=== PATIENT | female | born 1980 | race African-American/Black ===

== ENCOUNTER 2017-12-19 15:06 | Emergency (ER) | payer OTHER ==
[~2017-12-19] VITALS: Ht 154.9 cm; Wt 81.7 kg
[~2017-12-19 15:06] MED LIST: BACTRIM DS TAB1 EACH PO; IBUPROFEN 600600 M1 PO; IBUPROFEN 800800 MG PO; NOHOMEMEDICATIONS; NORCO 5-325 TA1 EACH PO; PENICILLIN VK500 MG PO; RONDEC-DM SYRU120 ML PO
[2017-12-19 15:07] VITALS: BP 149/104
[2017-12-19] MEDS ORDERED: PENICILLIN V P500 MG PO (15:13)
[2017-12-19] MEDS ORDERED: NORCO 10-325 T1 EACH PO (15:13)
[2017-12-19] MEDS ORDERED: IBUPROFEN 800800 M1 PO (15:39)
== END 2017-12-19 15:46 | disposition home or self-care (01) ==
LOC: ER 15:06
DX: K08.89 Other specified disorders of teeth and supporting structures (principal); Z88.5 Allergy status to narcotic agent; Z88.6 Allergy status to analgesic agent

== ENCOUNTER 2017-12-23 05:44 | Emergency (ER) | payer OTHER ==
[~2017-12-23] VITALS: Ht 154.9 cm; Wt 81.7 kg
[~2017-12-23 05:44] MED LIST changes: +IBUPROFEN 800800 M1 PO; +NORCO 10-325 T1 EACH PO; +PENICILLIN V P500 MG PO
[2017-12-23 06:20] LABS: ABSOLUTE NEUTROPHILS 4.1 thou/uL (1.4-8.2); BASOPHILS 0.5 % (0.0-2.0); EOSINOPHILS 1.4 % (0.0-3.0); HEMATOCRIT 39.4 % (37.0-47.0); HEMOGLOBIN 13.2 gm/dL (12.0-15.0); LYMPHOCYTES 29.2 % (24.0-44.0); MCH 30.4 pg (26.0-34.0); MCHC 33.4 g/dL (28.0-37.0); MONOCYTES 7.4 % (1.0-8.0); PLATELET COUNT 299 thou/uL (150-400); POLYS 61.5 % (36.0-66.0); RBC 4.33 mil/uL (4.20-5.00); WBC 6.7 thou/uL (4.0-11.0)
[2017-12-23 06:22] LABS: CALCIUM 8.8 mg/dL (8.5-10.1); CREATININE 0.8 mg/dL (0.6-1.0); POTASSIUM 3.5 mmol/L (3.5-5.1)
[2017-12-23 06:27] LABS: ALBUMIN 3.7 g/dL (3.4-5.0); TOTAL BILIRUBIN 0.4 mg/dL (<0.1-1.0); TOTAL PROTEIN 7.1 g/dL (6.4-8.2)
[2017-12-23 06:58] LABS: URINE BILIRUBIN NEGATIVE (Negative); URINE BLOOD TRACE (Negative); URINE CLARITY CLEAR; URINE COLOR YELLOW; URINE GLUCOSE-RANDOM* NEGATIVE (Negative); URINE KETONES 1+ (Negative); URINE LEUKOCYTES-REFLEX NEGATIVE (Negative); URINE NITRITE-REFLEX NEGATIVE (Negative); URINE PROTEIN (DIPSTICK) TRACE (Negative); URINE UROBILINOGEN 0.2 E.U./dl (0.2-1.0)
[2017-12-23] MEDS ORDERED: IBUPROFEN 600600 M1 PO (08:49)
[2017-12-23 09:28] VITALS: BP 130/65
== END 2017-12-23 09:29 | disposition home or self-care (01) ==
LOC: ER 05:44
PROVIDERS: Emergency Medicine
DX: R10.31 Right lower quadrant pain (principal); Z90.710 Acquired absence of both cervix and uterus; Z88.6 Allergy status to analgesic agent; Z88.8 Allergy status to other drugs, medicaments and biological substances

== ENCOUNTER 2019-02-23 02:21 | Emergency (ER) | payer OTHER ==
[~2019-02-23] VITALS: Ht 154.9 cm; Wt 63.5 kg
[2019-02-23] MEDS ORDERED: MULTIVITAMINS1 EAC7 PO (02:46)
[2019-02-23 03:15] LABS: URINE BILIRUBIN NEGATIVE (Negative); URINE BLOOD NEGATIVE (Negative); URINE CLARITY CLEAR; URINE COLOR YELLOW; URINE GLUCOSE-RANDOM* NEGATIVE (Negative); URINE KETONES NEGATIVE (Negative); URINE LEUKOCYTES-REFLEX NEGATIVE (Negative); URINE NITRITE-REFLEX NEGATIVE (Negative); URINE PROTEIN (DIPSTICK) NEGATIVE (Negative); URINE UROBILINOGEN 0.2 E.U./dl (0.2-1.0)
[2019-02-23 03:43] LABS: ABSOLUTE NEUTROPHILS 6.3 thou/uL (1.4-8.2); BASOPHILS 0.5 % (0.0-2.0); HEMATOCRIT 38.8 % (37.0-47.0); HEMOGLOBIN 13.2 gm/dL (12.0-15.0); LYMPHOCYTES 14.7 % (24.0-44.0); MCV 88.2 fL (80.0-100.0); MONOCYTES 4.3 % (1.0-8.0); PLATELET COUNT 284 thou/uL (150-400); POLYS 79.5 % (36.0-66.0); RDW 12.5 % (10.5-14.5)
[2019-02-23 03:51] LABS: CALCIUM 9.4 mg/dL (8.5-10.1); CREATININE 0.7 mg/dL (0.6-1.0); POTASSIUM 4.3 mmol/L (3.5-5.1)
[2019-02-23 03:57] VITALS: BP 143/81
[2019-02-23 03:57] LABS: TOTAL BILIRUBIN 0.3 mg/dL (<0.1-1.0); TOTAL PROTEIN 7.9 g/dL (6.4-8.2)
== END 2019-02-23 03:46 | disposition left against medical advice (07) ==
LOC: ER 02:21
PROVIDERS: Emergency Medicine
DX: R10.31 Right lower quadrant pain (principal); Z76.5 Malingerer [conscious simulation]; Z90.710 Acquired absence of both cervix and uterus; Z88.6 Allergy status to analgesic agent; Z88.5 Allergy status to narcotic agent; Z88.8 Allergy status to other drugs, medicaments and biological substances

== ENCOUNTER 2019-06-17 22:03 | Emergency (ER) | payer OTHER ==
[~2019-06-17] VITALS: Ht 154.9 cm; Wt 81.7 kg
[~2019-06-17 22:03] MED LIST changes: +MULTIVITAMINS1 EAC7 PO
[2019-06-17] MEDS ORDERED: ACETAMINOPHEN-1 EAC1 PO (22:47)
[2019-06-17] MEDS ORDERED: NAPROSYN500 MG PO (22:47)
[2019-06-17 23:20] VITALS: BP 158/88
== END 2019-06-17 23:21 | disposition home or self-care (01) ==
LOC: ER 22:03
DX: S83.91XA Sprain of unspecified site of right knee, initial encounter (principal); Z90.710 Acquired absence of both cervix and uterus; Z90.721 Acquired absence of ovaries, unilateral; Z88.6 Allergy status to analgesic agent; Z88.8 Allergy status to other drugs, medicaments and biological substances; X50.1XXA Overexertion from prolonged static or awkward postures, initial encounter; Y93.89 Activity, other specified; Y92.098 Other place in other non-institutional residence as the place of occurrence of the external cause; Y99.8 Other external cause status

== ENCOUNTER 2020-03-01 17:34 | Emergency (ER) | payer OTHER, BC ==
[~2020-03-01] VITALS: Ht 154.9 cm; Wt 80.7 kg
[~2020-03-01 17:34] MED LIST changes: +ACETAMINOPHEN-1 EAC1 PO; +NAPROSYN500 MG PO
[2020-03-01] MEDS ORDERED: IBUPROFEN 800800 M1 PO (19:25)
[2020-03-01] MEDS ORDERED: ROBAXIN 750 MG750 MG PO (19:25)
[2020-03-01] MEDS ORDERED: CVS POLY BACITR28 G1 TOP (19:25)
[2020-03-01] MEDS ORDERED: KEFLEX500 M2 PO (19:25)
[2020-03-01] MEDS ORDERED: COLACE100 MG PO (19:29)
[2020-03-01] MEDS ORDERED: NORCO 5-325 TA1 EAC1 PO (19:31)
[2020-03-01 19:41] VITALS: BP 137/79
== END 2020-03-01 19:40 | disposition home or self-care (01) ==
LOC: ER 17:34
DX: S66.911A Strain of unspecified muscle, fascia and tendon at wrist and hand level, right hand, initial encounter (principal); S46.912A Strain of unspecified muscle, fascia and tendon at shoulder and upper arm level, left arm, initial encounter; S80.02XA Contusion of left knee, initial encounter; S90.112A Contusion of left great toe without damage to nail, initial encounter; S00.81XA Abrasion of other part of head, initial encounter; Z79.899 Other long term (current) drug therapy; Z90.710 Acquired absence of both cervix and uterus; Z98.890 Other specified postprocedural states; Z88.6 Allergy status to analgesic agent; V19.88XA Pedal cyclist (driver) (passenger) injured in other specified transport accidents, initial encounter; Y93.55 Activity, bike riding; Y92.413 State road as the place of occurrence of the external cause; Y99.9 Unspecified external cause status

== ENCOUNTER 2020-04-27 20:52 | Emergency (ER) | payer OTHER ==
[~2020-04-27] VITALS: Ht 162.6 cm; Wt 68.0 kg
[~2020-04-27 20:52] MED LIST changes: +COLACE100 MG PO; +CVS POLY BACITR28 G1 TOP; +KEFLEX500 M2 PO; +NORCO 5-325 TA1 EAC1 PO; +ROBAXIN 750 MG750 MG PO
[2020-04-27 20:56] VITALS: BP 136/92
[2020-04-27 21:18] LABS: URINE BILIRUBIN NEGATIVE (Negative); URINE BLOOD 1+ (Negative); URINE CLARITY CLEAR; URINE COLOR YELLOW; URINE GLUCOSE-RANDOM* NEGATIVE (Negative); URINE KETONES NEGATIVE (Negative); URINE NITRITE-REFLEX NEGATIVE (Negative); URINE PROTEIN (DIPSTICK) 1+ (Negative); URINE SPECIFIC GRAVITY >= 1.030 (1.005-1.035)
[2020-04-27 21:20] LABS: URINE LEUKOCYTES-REFLEX 2+ (Negative)
[2020-04-27 21:31] LABS: CASTS None Seen /LPF (None Seen); CRYSTALS None Seen /LPF (None Seen); SQUAMOUS 4-10 Moderate /LPF (0-3)
[2020-04-27 21:32] LABS: BACTERIA-REFLEX 1-9 Few /HPF (None Seen); URINE RBC 0-2 Rare /HPF (0-2)
[2020-04-27] MEDS ORDERED: FLAGYL500 M1 PO (21:38)
== END 2020-04-27 21:40 | disposition home or self-care (01) ==
LOC: ER 20:52
PROVIDERS: Physician Assistant
DX: A59.9 Trichomoniasis, unspecified (principal); Z90.711 Acquired absence of uterus with remaining cervical stump; Z79.899 Other long term (current) drug therapy; Z79.2 Long term (current) use of antibiotics; Z88.8 Allergy status to other drugs, medicaments and biological substances; Z88.6 Allergy status to analgesic agent; Z88.5 Allergy status to narcotic agent

== ENCOUNTER 2020-05-05 01:23 | Emergency (ER) | payer OTHER ==
[~2020-05-05] VITALS: Ht 154.9 cm; Wt 81.7 kg
[~2020-05-05 01:23] MED LIST changes: +FLAGYL500 M1 PO
[2020-05-05] MEDS ORDERED: NORCO 5-325 TA1 EAC2 PO (03:47)
[2020-05-05 03:58] VITALS: BP 145/84
== END 2020-05-05 03:59 | disposition home or self-care (01) ==
LOC: ER 01:23
DX: S63.502A Unspecified sprain of left wrist, initial encounter (principal); Z90.711 Acquired absence of uterus with remaining cervical stump; Z98.890 Other specified postprocedural states; Z88.8 Allergy status to other drugs, medicaments and biological substances; Z88.6 Allergy status to analgesic agent; Z88.5 Allergy status to narcotic agent; V87.8XXA Person injured in other specified noncollision transport accidents involving motor vehicle (traffic), initial encounter; Y93.89 Activity, other specified; Y92.488 Other paved roadways as the place of occurrence of the external cause; Y99.8 Other external cause status

== ENCOUNTER 2020-05-22 23:21 | Emergency (ER) | payer OTHER ==
[~2020-05-22] VITALS: Ht 154.9 cm; Wt 80.7 kg
[~2020-05-22 23:21] MED LIST changes: +NORCO 5-325 TA1 EAC2 PO
[2020-05-23 00:25] LABS: ABSOLUTE NEUTROPHILS 2.3 thou/uL (1.4-8.2); BASOPHILS 0.6 % (0.0-2.0); EOSINOPHILS 2.7 % (0.0-3.0); HEMATOCRIT 35.9 % (37.0-47.0); LYMPHOCYTES 40.2 % (24.0-44.0); MCH 30.4 pg (26.0-34.0); MCHC 33.5 g/dL (28.0-37.0); MCV 90.6 fL (80.0-100.0); MONOCYTES 6.7 % (1.0-8.0); PLATELET COUNT 270 thou/uL (150-400); POLYS 49.8 % (36.0-66.0); RBC 3.96 mil/uL (4.20-5.00); RDW 13.6 % (10.5-14.5); WBC 4.7 thou/uL (4.0-11.0)
[2020-05-23 00:33] LABS: CALCIUM 8.3 mg/dL (8.5-10.1); CREATININE 1.1 mg/dL (0.6-1.0); POTASSIUM 3.7 mmol/L (3.5-5.1)
[2020-05-23] MEDS ORDERED: NORCO 5-325 TA1 EAC2 PO (01:58)
[2020-05-23] MEDS ORDERED: AMOXICILLIN 50500 M1 PO (01:58)
[2020-05-23] MEDS ORDERED: SENNA-DOCUSATE1 EAC1 PO (01:58)
[2020-05-23 02:07] VITALS: BP 162/101
== END 2020-05-23 02:09 | disposition home or self-care (01) ==
LOC: ER 23:21
PROVIDERS: Emergency Medicine
DX: K04.7 Periapical abscess without sinus (principal); Z88.6 Allergy status to analgesic agent; Z88.5 Allergy status to narcotic agent; Z90.710 Acquired absence of both cervix and uterus; Z98.890 Other specified postprocedural states

== ENCOUNTER 2020-09-09 21:11 | Emergency (ER) | payer OTHER ==
[~2020-09-09] VITALS: Ht 154.9 cm; Wt 81.7 kg
[~2020-09-09 21:11] MED LIST changes: +AMOXICILLIN 50500 M1 PO; +SENNA-DOCUSATE1 EAC1 PO
[2020-09-09 21:31] LABS: URINE BILIRUBIN NEGATIVE (Negative); URINE BLOOD NEGATIVE (Negative); URINE CLARITY CLEAR; URINE COLOR YELLOW; URINE GLUCOSE-RANDOM* NEGATIVE (Negative); URINE KETONES NEGATIVE (Negative); URINE LEUKOCYTES-REFLEX NEGATIVE (Negative); URINE NITRITE-REFLEX NEGATIVE (Negative); URINE PROTEIN (DIPSTICK) NEGATIVE (Negative); URINE UROBILINOGEN 0.2 E.U./dl (0.2-1.0)
[2020-09-09] MEDS ORDERED: NOHOMEMEDICATIONS (21:42)
[2020-09-09] MEDS ORDERED: LIDODERM1 EACH TOP (22:47)
[2020-09-09] MEDS ORDERED: MOBIC15 MG PO (22:47)
[2020-09-09 23:00] VITALS: BP 155/100
== END 2020-09-09 23:24 | disposition home or self-care (01) ==
LOC: ER 21:11
PROVIDERS: Nurse Practitioner
DX: T14.8XXA Other injury of unspecified body region, initial encounter (principal); M25.511 Pain in right shoulder; R07.81 Pleurodynia; M54.6 Pain in thoracic spine; Z90.711 Acquired absence of uterus with remaining cervical stump; Z98.890 Other specified postprocedural states; Z88.8 Allergy status to other drugs, medicaments and biological substances; Z88.6 Allergy status to analgesic agent; Z88.5 Allergy status to narcotic agent; W10.8XXA Fall (on) (from) other stairs and steps, initial encounter; Y93.89 Activity, other specified; Y92.89 Other specified places as the place of occurrence of the external cause; Y99.8 Other external cause status

== ENCOUNTER 2020-12-18 02:32 | Emergency (ER) | payer OTHER ==
[~2020-12-18] VITALS: Ht 154.9 cm; Wt 77.1 kg
[~2020-12-18 02:32] MED LIST changes: +LIDODERM1 EACH TOP; +MOBIC15 MG PO
[2020-12-18 03:05] LABS: ABSOLUTE NEUTROPHILS 3.3 thou/uL (1.4-8.2); BASOPHILS 0.7 % (0.0-2.0); EOSINOPHILS 1.3 % (0.0-3.0); HEMATOCRIT 36.7 % (37.0-47.0); HEMOGLOBIN 12.3 gm/dL (12.0-15.0); LYMPHOCYTES 31.4 % (24.0-44.0); MCH 30.5 pg (26.0-34.0); MCHC 33.6 g/dL (28.0-37.0); MCV 90.7 fL (80.0-100.0); MONOCYTES 4.9 % (1.0-8.0); PLATELET COUNT 305 thou/uL (150-400); POLYS 61.7 % (36.0-66.0); RBC 4.04 mil/uL (4.20-5.00); RDW 13.2 % (10.5-14.5); WBC 5.4 thou/uL (4.0-11.0)
[2020-12-18 03:12] LABS: ANION GAP 11 mmol/L (7-16); BUN 9 mg/dL (7-18); CALCIUM 8.8 mg/dL (8.5-10.1); CHLORIDE 102 mmol/L (98-107); CO2 28 mmol/L (21-32); CREATININE 0.8 mg/dL (0.6-1.0); GLUCOSE 93 mg/dL (74-106); POTASSIUM 3.5 mmol/L (3.5-5.1); SODIUM 141 mmol/L (136-145)
[2020-12-18 03:21] LABS: DIRECT BILIRUBIN < 0.1 mg/dL (<0.1-0.2); LIPASE 75 U/L (73-393); SGOT 14 U/L (15-37); SGPT 32 U/L (14-59); TOTAL BILIRUBIN 0.3 mg/dL (0.2-1.0); TOTAL PROTEIN 7.5 g/dL (6.4-8.2)
[2020-12-18 04:34] LABS: URINE BILIRUBIN NEGATIVE (Negative); URINE BLOOD TRACE (Negative); URINE CLARITY SL CLOUDY; URINE COLOR YELLOW; URINE GLUCOSE-RANDOM* NEGATIVE (Negative); URINE KETONES NEGATIVE (Negative); URINE LEUKOCYTES-REFLEX 2+ (Negative); URINE NITRITE-REFLEX NEGATIVE (Negative); URINE PROTEIN (DIPSTICK) NEGATIVE (Negative); URINE UROBILINOGEN 0.2 E.U./dl (0.2-1.0)
[2020-12-18 04:47] LABS: CASTS None Seen /LPF (None Seen); MUCUS None Seen strn/LPF (None Seen); SQUAMOUS 4-10 Moderate /LPF (0-3)
[2020-12-18 04:48] LABS: URINE RBC 0-2 Rare /HPF (0-2); URINE WBC-REFLEX 6-15 Few /HPF (0-5)
[2020-12-18 04:49] LABS: CRYSTALS None Seen /LPF (None Seen)
[2020-12-18] MEDS ORDERED: NORCO5 PO (05:20)
[2020-12-18] MEDS ORDERED: CIPROFLOXACIN500 M1 PO (05:21)
[2020-12-18] MEDS ORDERED: FLAGYL500 M1 PO (05:21)
[2020-12-18 05:27] VITALS: BP 141/88
== END 2020-12-18 05:30 | disposition home or self-care (01) ==
LOC: ER 02:32
PROVIDERS: Emergency Medicine
DX: K52.9 Noninfective gastroenteritis and colitis, unspecified (principal); N39.0 Urinary tract infection, site not specified; Z90.710 Acquired absence of both cervix and uterus; Z88.5 Allergy status to narcotic agent; Z88.8 Allergy status to other drugs, medicaments and biological substances

== ENCOUNTER 2021-02-22 04:42 | Emergency (ER) | payer OTHER ==
[~2021-02-22] VITALS: Ht 154.9 cm; Wt 80.7 kg
[~2021-02-22 04:42] MED LIST changes: +CIPROFLOXACIN500 M1 PO; +NORCO5 PO
[2021-02-22 05:52] LABS: URINE BILIRUBIN NEGATIVE (Negative); URINE BLOOD NEGATIVE (Negative); URINE CLARITY CLEAR; URINE COLOR YELLOW; URINE GLUCOSE-RANDOM* NEGATIVE (Negative); URINE KETONES NEGATIVE (Negative); URINE LEUKOCYTES-REFLEX NEGATIVE (Negative); URINE NITRITE-REFLEX NEGATIVE (Negative); URINE PROTEIN (DIPSTICK) NEGATIVE (Negative); URINE SPECIFIC GRAVITY 1.025 (1.005-1.035); URINE UROBILINOGEN 0.2 E.U./dl (0.2-1.0)
[2021-02-22 06:03] LABS: ABSOLUTE NEUTROPHILS 3.7 thou/uL (1.4-8.2); BASOPHILS 0.8 % (0.0-2.0); EOSINOPHILS 1.6 % (0.0-3.0); HEMATOCRIT 36.6 % (37.0-47.0); HEMOGLOBIN 12.5 gm/dL (12.0-15.0); LYMPHOCYTES 28.4 % (24.0-44.0); MCH 30.6 pg (26.0-34.0); MCHC 34.2 g/dL (28.0-37.0); MCV 89.5 fL (80.0-100.0); MONOCYTES 7.4 % (1.0-8.0); PLATELET COUNT 269 thou/uL (150-400); POLYS 61.8 % (36.0-66.0); RBC 4.09 mil/uL (4.20-5.00); RDW 12.9 % (10.5-14.5)
[2021-02-22 06:16] LABS: CALCIUM 8.9 mg/dL (8.5-10.1); CREATININE 0.8 mg/dL (0.6-1.0); POTASSIUM 3.8 mmol/L (3.5-5.1)
[2021-02-22 06:23] LABS: ALBUMIN 3.9 g/dL (3.4-5.0); TOTAL BILIRUBIN 0.3 mg/dL (0.2-1.0); TOTAL PROTEIN 7.4 g/dL (6.4-8.2)
[2021-02-22 08:49] VITALS: BP 142/89
== END 2021-02-22 08:54 | disposition home or self-care (01) ==
LOC: ER 04:42
PROVIDERS: Emergency Medicine
DX: R10.2 Pelvic and perineal pain (principal); Z88.6 Allergy status to analgesic agent; Z88.5 Allergy status to narcotic agent